=== PATIENT | female | born 1985 | race Caucasian/White ===

== ENCOUNTER 2022-08-06 20:50 | Emergency (ER) | payer BC, OTHER ==
[2022-08-06] MEDS ORDERED: MORPHINE 4 MG/ML SYR ONE ×2 (21:13→22:48)
[2022-08-06] MEDS ORDERED: NA CHLORIDE 0.9% 1,000 ML ONE (21:13)
[2022-08-06] MEDS ORDERED: ONDANSETRON 4 MG/2 ML VIAL ONE ×2 (21:13→22:48)
--- NOTE | 2022-08-06 21:29 | RAD REPORT ---
EXAM DESCRIPTION: RAD - Humerus Right - 08/06/2022 9:23 pm CLINICAL HISTORY: Right arm pain FINDINGS: Comminuted markedly displaced fracture distal right humerus.
[2022-08-06 22:12] LABS: Absolute Lymphocytes (CBC) 1.7 K/uL (0.7-4.9); Hematocrit 35.3 % (36.0-45.0); Lymphocytes % 12.3 % (15.3-44.8); MCV 81.7 fL (80-100); MPV 9.2 fL (7.6-11.3); RBC Red Blood Cell Count 4.31 M/uL (3.86-4.86)
[2022-08-06 22:20] LABS: Protime INR 0.94
[2022-08-06] MEDS ORDERED: NA CHLORIDE 0.9% 2,000 ML ONE (23:01)
[2022-08-07 00:27] LABS: Potassium 4.2 mmol/L (3.5-5.1)
[2022-08-07] MEDS ORDERED: HYDROMORPHONE HCL 1 MG/ML INJ ONE ×2 (00:36→01:32)
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
[2022-08-07 00:55] LABS: SARS-CoV-2 Antigen Rapid Res Negative (Negative)
[2022-08-07] MEDS ORDERED: ONDANSETRON 4 MG (ODT) TAB ONE (02:27)
[2022-08-07 03:24] VITALS: O2SAT 100
[2022-08-07 03:34] VITALS: BP 103/60; TEMP 97.9
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
== END 2022-08-07 02:41 | disposition home or self-care (01) ==
LOC: ER 20:50
PROC: 2W38X1Z Immobilization of Right Upper Extremity using Splint (ICD-10-PCS; principal; 2022-08-07)
DX: S42.351A Displaced comminuted fracture of shaft of humerus, right arm, initial encounter for closed fracture (principal); F17.210 Nicotine dependence, cigarettes, uncomplicated; Z88.0 Allergy status to penicillin; Z20.822 Contact with and (suspected) exposure to COVID-19
CPT/HCPCS: 85025; 80048; 36415; 86900; 86850; 84703; 85610; 82565; 86901; 85730; 70450; 72125; 71260; 74177; 73060; 99284; 87811; 29105; Q9967; Q0162; J1170 ×2; J7030 ×2; J2405 ×2